=== PATIENT | female | born 1995 | race Two or more races ===

== ENCOUNTER → 2025-06-05 | Outpatient (CLI) | payer MEDICAID, SELFPAY ==
--- NOTE | 2025-06-05 10:33 | XR_ITS ---
Examination:Left hip AP, lateral, AP pelvis 3 views Technique: Hip AP lateral, AP pelvis, 3 views Exam date and time:June 05, 2025 1041 hours INDICATIONS: Left hip pain beginning 5 years ago. FINDINGS: No left hip fracture or dislocation No arthritic change. Bones of the pelvis intact IMPRESSION: No left hip fracture or arthritic change.
--- NOTE | 2025-06-05 10:34 | XR_ITS ---
Examination: Wrist, left 3 views Technique: Wrist AP, oblique, lateral 3 views Date and time of exam: June 05, 2025 1041 hours INDICATIONS: Left wrist pain beginning 5 years ago. FINDINGS: No fracture or dislocation. No erosive or other significant arthritic change IMPRESSION: No erosive or other significant arthritic change
== END | disposition home or self-care (01) ==
PROVIDERS: PCP Physician Assistant; Referring Provider Physician Assistant; Visit Provider Physician Assistant
DX: M25.532 Pain in left wrist (principal); M25.552 Pain in left hip
CPT/HCPCS: 73110; 73502

== ENCOUNTER 2025-09-05 09:00 | Outpatient (RCR) | payer MEDICAID, SELFPAY ==
--- NOTE | 2025-08-24 13:48 | PTNOTE_ITS ---
PT OP Initial Eval Patient Information Outpatient Physical Therapy Treatment Date: 08/24/25 Visit Reasons: Left knee pain Medical Diagnosis: Left Knee Pain Treatment Dx #1: Left Knee Pain Start of Care: 08/24/25 Date of Onset: 1 year ago Smoking Status Smoking Status: Never smoker Initial Assessment Subjective: Pt is a 30 y/o female reports of chronic left knee pain (04/20) with popping and clicking of the knee. Pt hurt her knee ~ 1 year ago. Xray negative no MRI has been done thus far. Pt has limitation with squatting, kneeling, chores, self care, cooking, cleaning, and recreational activtiies. Objective: Left Knee AROM: all motions are WFL with end range pain Left Knee MMTs: grossly 4-/5 Left Hip MMTs: grossly 3+/5 Special Test (+) Francia (+) Thessaly Palpation: TTP medial knee Assessment: Pt demonstrate left knee pain consistent with possible meniscal involvement leading to difficulty with ADLs. Pt will attempt physical therapy if pain persist Pt will be refer back to provider for further consultation. Short Term and Group Home Goals 1) Increase left knee AROM WNL in 6 wks to be able to perform chores 2) Decrease left knee pain to 2/10 in 6 wks to be able to perform squatting activities 3) Increase left knee hip MMTs grossly to 4-/5 in 6 wks to be able to perform recreational activities 4) Increase left knee MMTs grossly to 4-/5 in 6 wks to be able to walk more than 30 mins 5) Indep with HEP Treatment Plan 1) Manual Therapy 2) Therapeutic Activities 3) Therapeutic Exercises 4) Modalities (ice, heat) 5) Balance Training Frequency and Duration: 2 x wk for 6 wks Certification Dates: 08/24/25 to 11/24/25 Procedure Charges OP PT Eval Mod Complex 30 minutes: Yes
--- NOTE | 2025-08-29 10:08 | PT.ODAYNRPT ---
PT Outpatient Daily Note OP Daily Note Outpatient Physical Therapy Treatment Date: 08/29/25 Visit Reasons: Left knee pain Subjective: Pt reports L knee is painful and achy, worse in the evening. Objective: Please see flow sheet for ther ex list. Assessment: Pt demonstrates poor tolerance with intervention due to pain response. Plan: Assess response to treatment, continue with pOC. Length of Time (minutes) of Treatment: 30 Minutes Procedure Charges Therapeutic Exercise 30 minutes: Yes
--- NOTE | 2025-08-31 10:34 | PT.ODAYNRPT ---
PT Outpatient Daily Note OP Daily Note Outpatient Physical Therapy Treatment Date: 08/31/25 Visit Reasons: Left knee pain Subjective: Pt c/o L knee pain, no changes at this time. Objective: Please see flow sheet for ther ex list. Assessment: Pt c/o pain, limiting participation with interventions. Plan: Assess response to treatment, progress as tolerated. Length of Time (minutes) of Treatment: 30 Minutes Procedure Charges Therapeutic Exercise 30 minutes: Yes
--- NOTE | 2025-09-05 09:38 | PT.ODAYNRPT ---
PT Outpatient Daily Note OP Daily Note Outpatient Physical Therapy Treatment Date: 09/05/25 Visit Reasons: Left knee pain Subjective: Pt reports L knee is more sore today, feels like it sore due to cold weather. Objective: Please see flow sheet for ther ex list. Assessment: Pt demonstrates poor activity tolerance delaying progress. Plan: Continue progressing interventions as tolerated. Length of Time (minutes) of Treatment: 30 Minutes Procedure Charges Therapeutic Exercise 30 minutes: Yes
== END 2025-09-10 23:59 | disposition home or self-care (01) ==
LOC: CPTX 09:00
PROVIDERS: PCP Physician Assistant; Referring Provider Physician Assistant; Visit Provider Physician Assistant
DX: M25.562 Pain in left knee (principal); G89.29 Other chronic pain
CPT/HCPCS: 97110; 97162

== ENCOUNTER 2025-09-19 09:00 | Outpatient (RCR) | payer MEDICAID, SELFPAY ==
--- NOTE | 2025-09-12 10:34 | PT.ODAYNRPT ---
PT Outpatient Daily Note OP Daily Note Outpatient Physical Therapy Treatment Date: 09/12/25 Visit Reasons: lEFT KNEE PAIN Subjective: Pt feels that physical therapy helps but sometimes it doen't help. Pt is willing to try a few more sessions prior to returning back to [facility]. Pt has been decorating her [place] tree at home which irritated her knee yesterday Objective: Please see flow chart for list of ther ex performed Assessment: progress patient to more closed chain exercises to increase loading of the left knee to see if pain increases. Pt reports of slight increase in knee pain post PT session. Use ice to help managed pain and soreness Plan: Continue with PT Length of Time (minutes) of Treatment: 30 Minutes Procedure Charges Therapeutic Exercise 30 minutes: Yes
--- NOTE | 2025-09-19 11:34 | PTNOTE_ITS ---
PT OP Progress/Discharge Note Date of Service: 09/19/25 Progress Note/DC Note Progress Note/Discharge Note: DC Note Patient Information Visit Reasons: lEFT KNEE PAIN Medical Diagnosis: Left Knee Pain Treatment Dx #1: Left Knee Pain Service Discharge Date: 09/19/25 Status Subjective: Pt's left knee is still hurting and feels about the same. Pt has limitation with standing, walking, chores, self care, squatting, and performing recreational act ivities. Pt continues to feel the popping and clicking. Objective: Left Knee AROM: all motions are WNL Left Knee MMTs: grossly 4-/5 Left Hip MMTs: grossly 3+/5 Special Test (+) Francia (+) Thessaly Palpation: TTP medial knee joint line Assessment: Pt demonstrate functional left knee mobility and strength, however, continues to have pain. Pt will no longer benefit from physical therapy due to minimal progress towards goals. Recommend knee MRI to help rule in/out nature of pain. Pt was instructed on HEP last session and educated to continue exercises to maintain overall mobility. Pt performed all exercises safely, thank you for your referrals. Plan: D/C home with HEP and follow up with [facility] Procedure Charges Therapeutic Exercise 30 minutes: Yes
== END 2025-10-11 23:59 | disposition home or self-care (01) ==
LOC: CPTX 09:00
PROVIDERS: PCP Physician Assistant; Referring Provider Physician Assistant; Visit Provider Physician Assistant
DX: M25.562 Pain in left knee (principal); G89.29 Other chronic pain
CPT/HCPCS: 97110